=== PATIENT | male | born 1955 | race Caucasian/White ===

== ENCOUNTER → 2019-03-24 | Outpatient (CLI) | payer BC ==
--- NOTE | 2019-03-24 14:14 | KCIC ---
MRI Brain without contrast History: Post concussion syndrome, fall Technique: Multiplanar, multisequential noncontrast MR imaging was performed of the brain. Comparison: None Findings: There is some motion. There is no evidence of recent infarct or cytotoxic edema. The ventricles, sulci, and cisterns are within normal limits in size and configuration. There is no significant midline shift, intraaxial mass effect, or focal abnormal extra-axial fluid collection. There are a couple of small foci of T2 and FLAIR hyperintense signal of the right frontal and left posterior temporal white matter. There is no significant hemosiderin deposition the brain parenchyma. There is preservation of the major intracranial flow-voids at the skull base. There is very minimal patchy fluid and thickening of the bilateral mastoid air cells.The cerebellar tonsils are normal in location. There is no significant abnormality of the pineal gland or pituitary gland. There is mild bilateral ethmoid air cell mucosal thickening. There are jia bullosa bilaterally. There is preserved marrow signal of the clivus. Impression: 1. Other than a couple small foci of likely nonspecific gliosis of the supratentorial parenchyma, there is no significant intracranial abnormality. Electronically signed by: Michael Suggs MD (03/24/2019 2:11 PM) [id number]
--- NOTE | 2019-03-24 14:53 | KCIC ---
MRI Cervical Spine Without Contrast History: Cervicalgia, neck pain, previous fall, bilateral radiculopathy Technique: Multiplanar, multi sequential noncontrast MR imaging was performed of the cervical spine. Comparison: None Findings: Cervical cord caliber is within normal limits without defined or expansile signal abnormality. Cervical vertebral body stature is maintained. There is straightening of cervical spine. There is minimal posterior subluxation of C3 relative to C4, negligible posterior subluxation C4 relative to C5, and very mild grade 1 spondylolisthesis at C7-T1. There is moderate degenerative disc disease C4-5 and to a somewhat lesser degree at C6-7, minimally at C5-6. There is some edema of the left C7 facet articulation more likely be reactive/degenerative in etiology. C2-C3: There is moderate to severe left facet degenerative change. There is mild posterior narrowing of the left neural foramen, right neural foramen and spinal canal overall adequate. C3-C4: There is minimal disc osteophyte complex. Central canal is minimally narrowed to 8 to 9 mm. There is facet degenerative change greater on the left. There is left uncovertebral degenerative change. Right neural foramen is adequate, [id number] narrowing of the left neural foramen. C4-C5: There is minimal disc osteophyte complex, mild indentation upon the ventral thecal sac greater in the far right recess. Central canal is narrowed to about 8 to 9 mm. There is facet hypertrophic change bilaterally, also degree of uncovertebral degenerative change. There is likely budd-oh-peqzsyke neural foramina compromise bilaterally. C5-C6: There is disc osteophyte complex, superimposed protrusion and small extrusion extending slightly below the intervertebral disc space eccentric to left lateral recess up to about 3 mm AP by about 5 to 6 mm transverse by 5 mm CC. There is indentation upon the ventral thecal sac and left aspect of the cord. Central canal is narrowed to about 6 mm, somewhat greater degree of moderate to severe left lateral recess stenosis. There is bilateral facet hypertrophic change. There is minimal narrowing of the neural foramina. C6-C7: There is minimal disc osteophyte complex with mild indentation upon the ventral thecal sac somewhat greater in the far right lateral recess. Central canal is narrowed to about 8 mm with a somewhat greater degree of right lateral recess stenosis. There is uncovertebral and facet degenerative change bilaterally. There is mild narrowing of the right neural foramen, moderate to severe narrowing of the left neural foramen. C7-T1: Spinal canal is adequate. There is severe bilateral facet degenerative change. There is fairly severe left and moderate right neural foramina compromise. Impression: 1. There is spinal stenosis on the order of 6 mm at C5-C6 at which there is a greater degree of left lateral recess stenosis and impingement upon the left ventral cord by protrusion/extrusion extending slightly below the intervertebral disc space. There is lesser degree of spinal stenosis as described at C3-4, C4-5, C6-C7. 2. There is multilevel facet and uncovertebral degenerative change contributing to multilevel cervical neural foramina compromise as stated, more significant narrowing on the left at C6-C7 and C7-T1, lesser degree of narrowing on the right at C7-T1, bilaterally at C4-5, and on the left at C3-4. 3. There is degenerative disc disease greatest at C4-5. There is mild spondylosis. Electronically signed by: Michael Suggs MD (03/24/2019 2:50 PM) [id number]
== END | disposition home or self-care (01) ==
LOC: KCIC MRI 12:14
PROVIDERS: ATTEND Psychiatry & Neurology Neurology with Special Qualifications in Child Neurology
DX: M43.13 Spondylolisthesis, cervicothoracic region (principal); M50.321 Other cervical disc degeneration at C4-C5 level; M25.78 Osteophyte, vertebrae; M47.813 Spondylosis without myelopathy or radiculopathy, cervicothoracic region; M48.03 Spinal stenosis, cervicothoracic region; F07.81 Postconcussional syndrome
CPT/HCPCS: 70551; 72141